=== PATIENT | female | born 1955 | race Caucasian/White ===

== ENCOUNTER 2020-12-09 21:48 | Emergency (ER) | payer MEDICARE ==
[2020-12-09] MEDS ORDERED: Sodium Chloride 0.9% 10 ML Syringe FLUSH PRN (22:19)
--- NOTE | 2020-12-09 22:20 | EDM.PDOC ---
ED HPI GENERAL MEDICAL PROBLEM - General Chief Complaint: General Stated Complaint: fever, cough Time Seen by Provider: 12/09/20 22:08 Source of Information: Reports: Patient - History of Present Illness INITIAL COMMENTS - FREE TEXT/NARRATIVE: Nessa, 65-year-old female, presents by private vehicle to the emergency department. She has had illness for approximately 3 weeks with fever 14 consecutive days. She has traveled the from [place] to [facility] in numerous activities and festivities in large crowds. Has had intermittent cough, chest congestion, general malaise, lightheaded and dizziness at times. No chest pain. Not vaccinated, Refuses Remdesivir, although it has not been offered or screened as a candidate. Onset: Gradual, Unknown/Unsure Duration: Week(s): Location: Reports: Chest Quality: Reports: Ache, Pressure Severity: Moderate Improves with: Reports: None Context: Reports: Sick Contact Associated Symptoms: Reports: Cough, Fever/Chills, Malaise, Weakness. Denies: Chest Pain, Headaches, Syncope Treatments CONSOLE MANAGER: Reports: NSAIDS - Related Data Allergies Allergy/AdvReac Type Severity Reaction Status Date / Time codeine Allergy Cannot Verified 12/09/20 23:07 Remember Past Medical History HEENT History: Reports: None Cardiovascular History: Reports: None Respiratory History: Reports: None Gastrointestinal History: Reports: None Genitourinary History: Reports: None Musculoskeletal History: Reports: None Neurological History: Reports: None Psychiatric History: Reports: None Endocrine/Metabolic History: Reports: None Hematologic History: Reports: None Immunologic History: Reports: None Oncologic (Cancer) History: Reports: None Dermatologic History: Reports: None - Infectious Disease History Infectious Disease History: Reports: None - Past Surgical History Female Surgical History: Reports: Hysterectomy - Past Imaging History Past Imaging History: Reports: Xray Social & Family History - Family History Family Medical History: No Pertinent Family History ED ROS GENERAL - Review of Systems Review Of Systems: Comprehensive ROS is negative, except as noted in HPI. ED EXAM, GENERAL - Physical Exam Exam: See Below Free Text/Narrative:: Alert, oriented, in no acute distress. There is no cyanosis nor pallor noted. HEENT negative discharge or deformity there is mild cerumen in the canals with no evidence of ceruminosis nor tympanic membrane involvement. PERRLA no icterus no injection EOM intact. Nasal passages are patent with no erythema nor exudate. Oropharynx is pink and moist somewhat dry appearing tongue with no erythema or exudate. Neck is soft supple no lymphadenopathy no bruit no JVD. Thorax is raspy rhonchi scattered throughout with no wheezes no crackles. Diminished bases Cardiac is S1-S2 with no noted murmur. Abdomen is soft bowel sounds are present there is no specific tenderness. rectal is deferred. Trace edema to the lower extremities +1 in nature with no tenderness no integument disruption. #1 Interpretation EKG Date: 12/09/20 Time: 22:28 Rhythm: NSR Rate (Beats/Min): 65 [place]: Normal P-Wave: Present QRS: Normal ST-T: Normal QT: Normal Comparison: NA - No Prior EKG Course - Vital Signs Last Recorded V/S: Last Vital Signs Temp 97.6 F 12/09/20 22:04 Pulse 65 12/09/20 22:46 Resp 20 12/09/20 22:04 BP 132/63 12/09/20 22:46 Pulse Ox 94 L 12/09/20 22:46 - Orders/Labs/Meds Orders: Active Orders 24 hr Category Date Time Status Peripheral IV Care [RC] . DIRECTED Care 12/09/20 22:19 Active Chest 1V Frontal [CR] Stat Exams 12/09/20 22:17 Taken Rivaroxaban [Xarelto] Med 12/10/20 09:00 Ordered 60 mg PO BID Sodium Chloride 0.9% [Saline Flush] Med 12/09/20 22:19 Active 10 ml FLUSH Q8HR PRN Peripheral IV Insertion Adult [OM.PC] Stat Oth 12/09/20 22:18 Ordered EKG 12 Lead [EK] Stat Ther 12/09/20 22:17 Ordered Medication Orders Rivaroxaban (Rivaroxaban 15 Mg Tab) 60 mg PO BID CORINNE Sodium Chloride (Sodium Chloride 0.9% 10 Ml Syringe) 10 ml FLUSH Q8HR PRN PRN Reason: keep vein open Last Admin: 12/09/20 22:53 Dose: 10 ml Documented by: FANG Labs: Laboratory Tests 12/09/20 12/09/20 12/09/20 Range/Units 22:29 23:20 23:20 WBC 6.00 (5.00-10.00) 10^3/uL RBC 4.16 (3.80-5.50) 10^6/uL Hgb 12.1 (12.0-16.0) g/dL Hct 37.0 (37.0-47.0) % MCV 88.9 (82.0-92.0) fL MCH 29.1 (27.0-31.0) pg MCHC 32.7 (32.0-36.0) g/dL RDW 12.8 (11.5-14.5) % Plt Count 157 (150-400) 10^3/uL MPV 10.2 (7.4-10.4) fL Immature Gran % (Auto) 0.2 (0.0-5.0) % Neut % (Auto) 56.3 (50.0-70.0) % Lymph % (Auto) 32.0 (20.0-40.0) % [place] % (Auto) 10.8 H (2.0-8.0) % Eos % (Auto) 0.2 L (1.0-3.0) % Baso % (Auto) 0.5 (0.0-1.0) % Neut # (Auto) 3.38 (2.50-7.00) 10^3/uL Lymph # (Auto) 1.92 (1.00-4.00) 10^3/uL [place] # (Auto) 0.65 (0.10-0.80) 10^3/uL Eos # (Auto) 0.01 L (0.10-0.30) 10^3/uL Baso # (Auto) 0.03 (0.00-0.10) 10^3/uL Immature Gran # (Auto) 0.01 (0.00-0.50) 10^3/uL Platelet Estimate Adequate D-Dimer, Quantitative 738 H (<400) ng/mL Sodium (136-145) mmol/L Potassium (3.5-5.1) mmol/L Chloride (98-107) mmol/L Carbon Dioxide (21.0-32.0) mmol/L Anion Gap (5-15) mmol/L BUN (7-18) mg/dL Creatinine (0.51-1.17) mg/dL Est Cr Clr Drug Dosing mL/min Estimated GFR (MDRD) mL/min Glucose (70-140) mg/dL Calcium (8.7-10.3) mg/dL Total Bilirubin (0.2-1.0) mg/dL AST (15-37) U/L ALT (14-63) U/L Alkaline Phosphatase (46-116) U/L Troponin I High Sens (0-51.000) pg/mL Total Protein (6.4-8.2) g/dL Albumin (3.40-5.00) g/dL Influenza Type A RNA Negative (NEGATIVE) Influenza Type B RNA Negative (NEGATIVE) SARS-CoV-2 RNA (FRANCOIS) Positive H (NEGATIVE) 12/09/20 Range/Units 23:20 WBC (5.00-10.00) 10^3/uL RBC (3.80-5.50) 10^6/uL Hgb (12.0-16.0) g/dL Hct (37.0-47.0) % MCV (82.0-92.0) fL MCH (27.0-31.0) pg MCHC (32.0-36.0) g/dL RDW (11.5-14.5) % Plt Count (150-400) 10^3/uL MPV (7.4-10.4) fL Immature Gran % (Auto) (0.0-5.0) % Neut % (Auto) (50.0-70.0) % Lymph % (Auto) (20.0-40.0) % [place] % (Auto) (2.0-8.0) % Eos % (Auto) (1.0-3.0) % Baso % (Auto) (0.0-1.0) % Neut # (Auto) (2.50-7.00) 10^3/uL Lymph # (Auto) (1.00-4.00) 10^3/uL [place] # (Auto) (0.10-0.80) 10^3/uL Eos # (Auto) (0.10-0.30) 10^3/uL Baso # (Auto) (0.00-0.10) 10^3/uL Immature Gran # (Auto) (0.00-0.50) 10^3/uL Platelet Estimate D-Dimer, Quantitative (<400) ng/mL Sodium 137 (136-145) mmol/L Potassium 3.6 (3.5-5.1) mmol/L Chloride 102 (98-107) mmol/L Carbon Dioxide 24.2 (21.0-32.0) mmol/L Anion Gap 14.4 (5-15) mmol/L BUN 14 (7-18) mg/dL Creatinine 0.80 (0.51-1.17) mg/dL Est Cr Clr Drug Dosing 50.36 mL/min Estimated GFR (MDRD) > 60 mL/min Glucose 113 (70-140) mg/dL Calcium 8.2 L (8.7-10.3) mg/dL Total Bilirubin 0.3 (0.2-1.0) mg/dL AST 25 (15-37) U/L ALT 32 (14-63) U/L Alkaline Phosphatase 39 L (46-116) U/L Troponin I High Sens 45.900 (0-51.000) pg/mL Total Protein 6.4 (6.4-8.2) g/dL Albumin 2.97 L (3.40-5.00) g/dL Influenza Type A RNA (NEGATIVE) Influenza Type B RNA (NEGATIVE) SARS-CoV-2 RNA (FRANCOIS) (NEGATIVE) Meds: Medications Generic Name Dose Route Start Last Admin Trade Name Freq PRN Reason Stop Dose Admin Rivaroxaban 60 mg 12/10/20 09:00 Rivaroxaban 15 Mg Tab PO BID CORINNE Sodium Chloride 10 ml 12/09/20 22:19 12/09/20 22:53 Sodium Chloride 0.9% 10 Ml Syringe FLUSH 10 ml Q8HR PRN Administration keep vein open Discontinued Medications Generic Name Dose Route Start Last Admin Trade Name Freq PRN Reason Stop Dose Admin Sodium Chloride 1,000 mls @ 999 mls/hr 12/09/20 22:55 12/09/20 23:02 Normal Saline IV 12/09/20 23:55 999 mls/hr .BOLUS ONE Administration - Re-Assessments/Exams Free Text/Narrative Re-Assessment/Exam: 12/10/20 00:21 At time of lab resulting with positive D-dimer discussed with her the reason and likelihood elevation is secondary of COVID-19 as it is been proven positive. She declines CTA as she states she has sensitivity to contrast despite not knowing what it was or how severe questioning if I would be able to give her the contrast very slowly off over a period of time to see if she reacted. I informed her that it is pushed in as fast as possible to do a scan of the lungs and that there is no testing to see if there is a sensitivity. I did not get to explain the possibility of pretreating as she declined as the risk is greater than what she feels would be the benefit. She does agree that she would do a VQ scan but she does not want to travel tonight to do so and would like us to try to make arrangements on Friday and either [facility] as the first choice or [facility] as a second choice. I do explained that she should be on prophylactic treatment for blood clot since she is not willing to partake in that at this time to which she does agree to take Xarelto 15 mg twice daily until scan can be arranged on Friday. Departure - Departure Time of Disposition: 00:16 Disposition: Home, Self-Care 01 Clinical Impression: Pulmonary infiltrates on CXR, Malaise and fatigue, Cough, Elevated d-dimer, SARS-CoV-2 positive Fever Qualifiers: Fever type: unspecified Qualified Code(s): R50.9 - Fever, unspecified - Discharge Information *PRESCRIPTION DRUG MONITORING PROGRAM REVIEWED*: Not Applicable *COPY OF PRESCRIPTION DRUG MONITORING REPORT IN PATIENT EARL: Not Applicable Instructions: COVID-19 Vaccine Information, Fever, Adult, [id number], COVID- 19: What to Do If You Are Sick- [facility] (05/24/2020) Referrals: Cinthia Srinivasan MD [Primary Care Provider] - Forms: ED Department Discharge Additional Instructions: Your test results this evening confirmed positive COVID-19 virus. Your tests also place you at risk for blood clot as you have an elevated D-dimer blood test. Your chest x-ray is concerning for the early development of a viral/inflammatory process at the bases of your lungs. Developing infiltrate/pneumonia cannot be excluded. Secondary of your inability/sensitivity to IV contrast we will need to make ar rangements for a VQ scan, which she would prefer to have done Friday or Friday. Until that time you will need to take Xarelto 15 mg twice daily. 4 tablets will be provided to you at your discharge taking 1 tonight 1 twice tomorrow 1 Friday morning and we will contact you when we are able to arrange a VQ scan. You need to maintain fluid intake and eat as tolerated avoiding getting further rundown. You need to make sure that you are still maintaining good hygiene for yourself as well as masking and avoiding contact with other individuals. You are still contagious at this time as you have been running fever and will remain contagious for 24 to 48 hours after your fever subsides without the use of any antipyretics. Consideration for testing over the weekend at [facility] should be given if you feel that you are getting worse in your chest and/or breathing capability. Sepsis Event Note (ED) - Focused Exam Vital Signs: Vital Signs Temp Pulse Resp BP Pulse Ox 12/09/20 22:46 65 132/63 94 L 12/09/20 22:30 64 138/68 96 12/09/20 22:15 69 132/66 95 12/09/20 22:04 97.6 F 71 20 130/70 94 L - Problem List & Annotations (1) Cough SNOMED Code(s): 73533552 Code(s): R05.9 - Status: Acute Priority: High (2) Fever SNOMED Code(s): 149125149 Code(s): R50.9 - FEVER, UNSPECIFIED Status: Acute Priority: High Qualifiers: Fever type: unspecified Qualified Code(s): R50.9 - Fever, unspecified (3) Malaise and fatigue SNOMED Code(s): 108102488 Code(s): R53.81 - OTHER MALAISE; R53.83 - OTHER FATIGUE Status: Acute Priority: High (4) Pulmonary infiltrates on CXR SNOMED Code(s): 102122849, 189772050 Code(s): R91.8 - OTHER NONSPECIFIC ABNORMAL FINDING OF LUNG FIELD Status: Acute Priority: High Annotation/Comment:: Likely viral etiology (5) Elevated d-dimer SNOMED Code(s): 920409462 Code(s): R79.89 - OTHER SPECIFIED ABNORMAL FINDINGS OF BLOOD CHEMISTRY Status: Acute Priority: High Onset Date: ~12/10/20 Annotation/Comment:: Discussed performing CTA of the chest which she states she is unable to do secondary of contrast sensitivities. We then discussed VQ scan which would have to be done in [place] or [place] which she is not anxious to have done this morning. I do offer Xarelto for treatment of potential PE until it can be arranged next week as she would prefer transportation herself. (6) SARS-CoV-2 positive SNOMED Code(s): 5479993241252077 Code(s): U07.1 - COVID-19 Status: Acute Priority: High Onset Date: ~12/10/20 Annotation/Comment:: Discussed performing CTA of the chest which she states she is unable to do secondary of contrast sensitivities. We then discussed VQ scan which would have to be done in [place] or [place] which she is not anxious to have done this morning. I do offer Xarelto for treatment of potential PE until it can be arranged next week as she would prefer transportation herself. - Problem List Review Problem List Initiated/Reviewed/Updated: Yes - My Orders Last 24 Hours: My Active Orders 12/09/20 22:17 Chest 1V Frontal [CR] Stat EKG 12 Lead [EK] Stat 12/09/20 22:18 Peripheral IV Insertion Adult [OM.PC] Stat 12/09/20 22:19 Peripheral IV Care [RC] . DIRECTED Sodium Chloride 0.9% [Saline Flush] 10 ml FLUSH Q8HR PRN 12/10/20 09:00 Rivaroxaban [Xarelto] 60 mg PO BID - Assessment/Plan Last 24 Hours: My Active Orders 12/09/20 22:17 Chest 1V Frontal [CR] Stat EKG 12 Lead [EK] Stat 12/09/20 22:18 Peripheral IV Insertion Adult [OM.PC] Stat 12/09/20 22:19 Peripheral IV Care [RC] . DIRECTED Sodium Chloride 0.9% [Saline Flush] 10 ml FLUSH Q8HR PRN 12/10/20 09:00 Rivaroxaban [Xarelto] 60 mg PO BID Plan: Your test results this evening confirmed positive COVID-19 virus. Your tests also place you at risk for blood clot as you have an elevated D-dimer blood test. Your chest x-ray is concerning for the early development of a viral/inflammatory process at the bases of your lungs. Developing infiltrate/pneumonia cannot be excluded. Secondary of your inability/sensitivity to IV contrast we will need to make arrangements for a VQ scan, which she would prefer to have done Friday or Friday. Until that time you will need to take Xarelto 15 mg twice daily. 4 tablets will be provided to you at your discharge taking 1 tonight 1 twice tomorrow 1 Friday morning and we will contact you when we are able to arrange a VQ scan. You need to maintain fluid intake and eat as tolerated avoiding getting further rundown. You need to make sure that you are still maintaining good hygiene for yourself as well as masking and avoiding contact with other individuals. You are still contagious at this time as you have been running fever and will remain contagious for 24 to 48 hours after your fever subsides without the use of any antipyretics. Consideration for testing over the weekend at [place] or [facility] should be given if you feel that you are getting worse in your chest and/or breathing capability.
[2020-12-09] MEDS ORDERED: Sodium Chloride 0.9% 1,000 ML IV ONE (22:55)
[2020-12-09] MEDS ORDERED: Rivaroxaban 15 MG Tab PO ONE (23:00)
[2020-12-09 23:35] LABS: CORONAVIRUS COVID-19 NAA POSITIVE (NEGATIVE)
[2020-12-09 23:44] LABS: ANION GAP 14.4 mmol/L (5-15); CHLORIDE,CL 102 mmol/L (98-107); SODIUM,NA 137 mmol/L (136-145)
[2020-12-10] MEDS ORDERED: Rivaroxaban 15 MG Tab PO SCH (09:00)
== END 2020-12-10 00:53 | disposition home or self-care (01) ==
LOC: KA.ED 21:48
DX: U07.1 COVID-19 (principal); R91.8 Other nonspecific abnormal finding of lung field; R79.1 Abnormal coagulation profile; Z88.5 Allergy status to narcotic agent
CPT/HCPCS: 0240U; 36415; 71045; 80053; 84484; 85025; 85379; 93005; 99284; 99284-25; A9270-GY; J7030